=== PATIENT | female | born 1955 | race Caucasian/White ===

== ENCOUNTER 2019-02-15 11:28 | Emergency (ER) | payer BC ==
[2019-02-15 12:08] VITALS: PULSE 64
[2019-02-15] MEDS ORDERED: TORAdol 30 mg Injection IM ONE (12:30)
[2019-02-15] MEDS ORDERED: Norflex 60 MG/2 ML IM ONE (12:30)
--- NOTE | 2019-02-15 12:37 | ERPHSYRPT ---
- History of Present Illness Time Seen by Provider: 02/15/19 12:31 Source: patient Exam Limitations: no limitations Patient Subjective Stated Complaint: states last saturday began having pain to posterior left knee. denies any injury. saw family md and was started on naproxen. states this is not helping. has used ice without relief. Triage Nursing Assessment: ambulated to room per self. skin w/d, color normal, resp easy. left leg warm, normal color. good pedal pulse. no swelling noted to leg. Physician History: 63 years old female came to ER with c/o pain and tingling and numbness around left thigh and left knee radiate to toes. states last saturday began having pain to posterior left knee. denies any injury. saw family md and was started on naproxen. states this is not helping. has used ice without relief. Timing/Duration: day(s) (5 days) Method of Injury: unknown Quality: burning Back Pain Location: lumbar spine, paraspinous muscles Back Pain Radiation: buttocks, upper legs, lower legs, feet Severity of Pain-Max: moderate Severity of Pain-Current: moderate Modifying Factors: Improves With: nothing Associated Symptoms: denies symptoms, No urinary incontinence, No loss of bowel control Previous symptoms: no prior history Allergies/Adverse Reactions: No Known Drug Allergies Allergy (Unverified 02/15/19 11:52) Home Medications: Buspirone HCl [Buspar] 10 mg PO BID 02/15/19 [History] Clonazepam 0.5 mg [Klonopin 0.5 MG] 0.5 mg PO DAILY 02/15/19 [History] Levothyroxine Sodium 25 Mcg [Synthroid 25 Mcg] 25 mcg PO DAILY 02/15/19 [ History] Pravastatin Sodium [Pravachol] 10 mg PO DAILY 02/15/19 [History] Sertraline HCl [Zoloft] 25 mg PO DAILY 02/15/19 [History] Hx Tetanus, Diphtheria Vaccination/Date Given: No Hx Influenza Vaccination/Date Given: Yes Hx Pneumococcal Vaccination/Date Given: Yes - Review of Systems Constitutional: No Fever, No Chills Eyes: No Symptoms Ears, Nose, & Throat: No Symptoms Respiratory: No Cough, No Dyspnea Cardiac: No Chest Pain, No Edema, No Syncope Abdominal/Gastrointestinal: No Abdominal Pain, No Nausea, No Vomiting, No Diarrhea Genitourinary Symptoms: No Dysuria Musculoskeletal: Back Pain, No Neck Pain Skin: No Rash Neurological: No Dizziness, No Focal Weakness, No Sensory Changes Psychological: No Symptoms Endocrine: No Symptoms All Other Systems: Reviewed and Negative - Past Medical History Pertinent Past Medical History: Yes ENT History: Cataracts Cardiac History: High Cholesterol Endocrine Medical History: Hypothyroidism Psycho-Social History: Anxiety, Depression - Past Surgical History Past Surgical History: Yes Gastrointestinal: Hernia Repair - Social History Smoking Status: Never smoker Exposure to second hand smoke: No Drug Use: none Patient Lives Alone: No - Female History Hx Now: No - Nursing Vital Signs Nursing Vital Signs: Initial Vital Signs Temperature 97.7 F 02/15/19 11:47 Pulse Rate 64 02/15/19 11:47 Respiratory Rate 16 02/15/19 11:47 Blood Pressure 145/80 02/15/19 11:47 O2 Sat by Pulse Oximetry 96 02/15/19 11:47 Pain Scale Pain Intensity [Left Knee] 8 Pain Intensity 8 - Physical Exam General Appearance: no apparent distress, alert Eye Exam: PERRL/EOMI, eyes nml inspection Neck Exam: normal inspection, non-tender, supple, full range of motion, No meningismus, No midline tenderness Respiratory Exam: normal breath sounds, lungs clear, No respiratory distress Cardiovascular Exam: regular rate/rhythm, normal heart sounds Gastrointestinal Exam: soft, No tenderness, No mass Extremity Exam: normal inspection, normal range of motion, No calf tenderness, No pedal edema Neurologic Exam: alert, oriented x 3, cooperative, developer automatic II-XII nml as tested, normal mood/affect, nml station & gait, sensation nml, No motor deficits Skin Exam: normal color, warm, dry, No rash SpO2: 96 - Course Nursing assessment & vital signs reviewed: Yes Ordered Tests: Medication Summary Discontinued Medications Generic Name Dose Route Start Last Admin Trade Name Freq PRN Reason Stop Dose Admin Ketorolac Tromethamine 60 mg 02/15/19 12:30 Toradol 30 Mg Injection IM 02/15/19 12:31 STAT ONE Orphenadrine Citrate 60 mg 02/15/19 12:30 Norflex 60 Mg/2 Ml IM 02/15/19 12:31 STAT ONE - Progress Progress: improved, pain not gone completely Counseled pt/family regarding: diagnosis, need for follow-up - Departure Departure Disposition: Home Clinical Impression: Sciatica of left side Condition: Stable Critical Care Time: No Referrals: CICI BOWSER [Primary Care Provider] - Instructions: Sciatica Exercises, Sciatica (DC), Back Flexion Stretching Exercises, Back Flexion Strengthening Exercises Additional Instructions: Discharge/Care Plan SURESH HORTON was seen on 02/15/19 in the Emergency Room. The patient was counseled regarding Diagnosis,Lab results, Imaging studies, need for follow up and when to return to the Emergency Room. Prescriptions given: Discharge Note I have spoken with the patient and/or caregivers. I have explained the patient' s condition, diagnosis and treatment plan based on the information available to me at this time. I have answered the patient's and/or caregiver's questions and addressed any concerns. The patient and/or caregivers have as good understanding of the patient's diagnosis, condition and treatment plan as can be expected at this point. The vital signs have been stable. The patient's condition is stable and appropriate for discharge from the emergency department. The patient will pursue further outpatient evaluation with the primary care physician or other designated or consulting physician as outlined in the discharge instructions. The patient and/or caregivers are agreeable to this plan of care and follow-up instructions have been explained in detail. The patient and/or caregivers have received these instruction. The patient/and or caregivers are aware that any significant change in condition or worsening of symptoms should prompt an immediate return to this or the closest emergency department or call 911. Forms: Work/School Release Form Prescriptions: Orphenadrine Citrate 100 mg [Norflex 100 MG Tablet] 100 mg PO BID #15 tab
[2019-02-15] MEDS ORDERED: Norflex 60 MG/2 ML ONE (12:55)
[2019-02-15] MEDS ORDERED: TORAdol 30 mg Injection ONE (12:55)
[2019-02-15 13:21] VITALS: BP 154/90; O2SAT 98
== END 2019-02-15 13:20 | disposition home or self-care (01) ==
LOC: ED 11:28
DX: M54.32 Sciatica, left side (principal); Z79.899 Other long term (current) drug therapy
CPT/HCPCS: 96372; 99284; J1885; J2360

== ENCOUNTER 2019-06-18 09:28 | Day surgery (SDC) | payer BC ==
--- NOTE | 2019-06-18 07:40 | HP ---
DATE OF SURGERY: 06/18/2019 ANTICIPATED PROCEDURE: Right inguinal repair with mesh. HISTORY OF PRESENT ILLNESS: The patient has moderate sized right inguinal hernia. PAST MEDICAL HISTORY: ALLERGIES: NONE. MEDICATIONS: Buspar, Zoloft, Pravastatin. PAST SURGICAL HISTORY: Cardiac surgery. SOCIAL HISTORY: Negative. FAMILY HISTORY: Negative. REVIEW OF SYSTEMS: CVS: Cardiac surgery. PHYSICAL EXAMINATION: VITAL SIGNS: Normal. CHEST: Clear. COR: Regular. ABDOMEN: Right inguinal hernia. IMPRESSION: Symptomatic right inguinal hernia. PLAN: Repair.
[~2019-06-18 09:28] MED LIST: CEFAZOLIN 2 GM-D5W BAG** 2 GM/50 ML ML IV ONE; CEFAZOLIN 2 GM-D5W BAG** 2 GM/50 ML ML IV SCH; DIPRIVAN 200 MG/20 ML IV ONE; Decadron 4 MG INJ ONE; KEFZOL 1 GM ONE; Lactated Ringers 1,000 ML IV ONE; Lactated Ringers 1,000 ML IV SCH; Naropin 0.5% 30 ML VIAL ONE; SUBLIMAZE 100 MCG/2 ML ONE; Sensorcaine 0.25% 10 ML ONE; Xylocaine-Mpf 2% 5 Ml Vial ONE
[2019-06-18 10:18] VITALS: O2SAT 94
[2019-06-18] MEDS ORDERED: Zemuron 100 MG/10 ML ONE (11:12)
[2019-06-18] MEDS ORDERED: Ephedrine Sulfate 50 MG/ML ONE (11:14)
[2019-06-18] MEDS ORDERED: Zofran 4 MG/2 ML VIAL ONE ×2 (11:17→12:20)
[2019-06-18] MEDS ORDERED: Decadron 4 MG INJ ONE (11:17)
[2019-06-18] MEDS ORDERED: TORAdol 30 mg Injection ONE (11:17)
[2019-06-18] MEDS ORDERED: SUBLIMAZE 100 MCG/2 ML ONE (12:18)
--- NOTE | 2019-06-18 12:20 | OP ---
SURGERY DATE/TIME: 06/18/2019 1104 PREOPERATIVE DIAGNOSIS: Right inguinal hernia. POSTOPERATIVE DIAGNOSIS: Right recurrent incarcerated inguinal hernia. PROCEDURE: Right recurrent incarcerated inguinal herniorrhaphy repair primary, no mesh. SURGEON: Bimal Zhou M.D. ANESTHESIA: General. COMPLICATIONS: None. CONDITION: Stable. INDICATION: A patient with symptomatic right inguinal hernia. She had this before. DESCRIPTION OF PROCEDURE: She is taken to surgery. General anesthetic. Routine prep and drape. Curvilinear incision. Defect was indirect. There was a 3 inch indirect sac this was taken and the floor was reinforced with 0 Prolene six which were placed and then tied down. Good approximation and hemostasis. Satisfactory repair. No mesh was used. The hernia had been incarcerated. Jose Antonio fascia closed with 2-0 Vicryl. Skin closed with 4-0 Vicryl. Steri-Strips applied. Sterile dressing applied. The patient tolerated the procedure satisfactorily.
[2019-06-18] MEDS ORDERED: Compazine 10 MG/2 ML ONE (12:37)
[2019-06-18 13:40] VITALS: BP 135/88; PULSE 70
== END 2019-06-18 13:50 | disposition home or self-care (01) ==
LOC: SDC 09:28
PROVIDERS: ATTEND Surgery
DX: K40.31 Unilateral inguinal hernia, with obstruction, without gangrene, recurrent (principal)
CPT/HCPCS: 64486; 76937; 76942; 93005; J0690; J1100; J1885; J2405; J2704; J2795; J3010